=== PATIENT | female | born 1955 | race Caucasian/White ===

== ENCOUNTER 2025-08-20 15:21 | Inpatient (IN) | payer MEDICARE, OTHER ==
[~2025-08-20] VITALS: Ht 154.9 cm; Wt 53.5 kg
[2025-08-20] MEDS ORDERED: ACETAMINOPHEN ES 500 MG TABLET ONE (16:07)
[2025-08-20] MEDS ORDERED: IBUPROFEN 600 MG TABLET ONE (16:07)
[2025-08-20] MEDS: IV NS 0.9% 1,000 ML BAG IV ONE (16:10)
[2025-08-20 16:14] LABS: PLATELET COUNT (AUTO) 295 K/uL (150-450); RED BLOOD CELL COUNT(AUTO) 3.93 MIL/uL (4.0-5.2); RED CELL DISTRIBUTION WIDTH 12.8 % (11.5-15.0); WHITE BLOOD COUNT (AUTO) 17.5 K/uL (4.3-11.0)
[2025-08-20] MEDS: ACETAMINOPHEN ES 500 MG TABLET PO ONE (16:15)
[2025-08-20] MEDS: IBUPROFEN 600 MG TABLET PO ONE (16:15)
[2025-08-20 16:23] LABS: CALCIUM, SERUM 9.0 mg/dL (8.5-10.1); CREATININE 0.9 mg/dL (0.6-1.3); SODIUM SERUM 133.0 mmol/L (136-145); UREA NITROGEN, BLOOD 16.0 mg/dL (7-18)
[2025-08-20] MEDS ORDERED: CT SWABBABLE VALVE TRANS SET 1 EA INFUS.SET MC ONE (16:24)
[2025-08-20] MEDS ORDERED: IOHEXOL-300 100 ML VIAL IV ONE (16:24)
[2025-08-20] MEDS ORDERED: IV NS 0.9% 250 ML IV ONE (16:25)
[2025-08-20 16:29] LABS: ASPARTATE AMINOTRANSFERASE 22.0 U/L (15-37); TOTAL PROTEIN, SERUM 7.2 g/dL (6.4-8.2)
[2025-08-20 16:30] LABS: LACTIC ACID 1.3 mmol/L (0.4-2.0)
[2025-08-20 16:31] LABS: INR 0.99 (0.91-1.10)
[2025-08-20] MEDS: PIPERACILLIN /TAZOBACTAM 3.375 G in IV D5W 50 ML IV ONE (16:35)
[2025-08-20 16:51] LABS: APPEARANCE,URINE CLEAR (CLEAR); BLOOD, URINE NEGATIVE Ery/uL (NEGATIVE); LEUKOCYTE ESTERASE ,URINE NEGATIVE (NEGATIVE); NITRITE, URINE NEGATIVE (NEGATIVE); UGLUCOSE TRACE mg/dL (NEGATIVE)
[2025-08-20 17:01] LABS: ADD URINE CULTURE NO
[2025-08-20] MEDS ORDERED: METO10TA3 PO (19:01)
[2025-08-20] MEDS ORDERED: ONDA4TAB11 PO (19:01)
[2025-08-20] MEDS ORDERED: BUDE10.2 INH (19:01)
[2025-08-20] MEDS ORDERED: FELO10TA44 PO (19:01)
[2025-08-20] MEDS ORDERED: ESCI20TA PO (19:01)
[2025-08-20] MEDS ORDERED: INSU100I40 SQ (19:01)
[2025-08-20] MEDS ORDERED: IBUP-1955 PO (19:01)
[2025-08-20] MEDS ORDERED: MONT10TA22 PO (19:01)
[2025-08-20] MEDS ORDERED: FENO145T21 PO (19:01)
[2025-08-20] MEDS ORDERED: ALBU6.7H9 IH (19:01)
[2025-08-20] MEDS ORDERED: ASPI-1420 PO (19:01)
[2025-08-20] MEDS ORDERED: PANT40TA49 PO (19:01)
[2025-08-20] MEDS ORDERED: LOSA1TAB39 PO (19:01)
[2025-08-20] MEDS ORDERED: METO-357 PO (19:01)
[2025-08-20] MEDS ORDERED: ATOR10TA PO (19:01)
[2025-08-20] MEDS ORDERED: INSU200I4 SQ (19:01)
[2025-08-20] MEDS ORDERED: DEXTROSE 50%-WATER 50 ML DISP.SYRIN IV PRN (20:30)
[2025-08-20] MEDS ORDERED: Z GUARD REMEDY 4 OZ OINT TP PRN (20:30)
[2025-08-20] MEDS: ENOXAPARIN SODIUM 40 MG/0.4 ML DISP.SYRIN SQ SCH (20:30)
[2025-08-20] MEDS ORDERED: MAG HYDROX/AL HYDROX/SIMETH 30 ML UDC PO PRN (20:30)
[2025-08-20] MEDS: POTASSIUM CL. PREMIX PERIPHER. 50 ML IV SCH (21:48)
[2025-08-20] MEDS: IV D5 LR 1,000 ML IV PRN (21:48)
[2025-08-20] MEDS: PANTOPRAZOLE 40 MG VIAL IV SCH (21:49)
[2025-08-20] MEDS ORDERED: PIPERACI/TAZO 3.375GM/D5W 50ML PB IV ONE (22:03)
[2025-08-20] MEDS: PIPERACILLIN /TAZOBACTAM 3.375 G in IV D5W 50 ML IV SCH (22:10)
[2025-08-20 22:59] VITALS: BP 118/77; TEMP 97.7; O2SAT 97
[2025-08-20] MEDS: BLOOD SUGAR DIAGNOSTIC 1 EACH STRIP IN SCH (23:10)
[2025-08-20] MEDS: INSULIN REGULAR, HUMAN 100 UNIT/ML 3 ML VIAL SQ PRN (23:11)
[2025-08-21] VITALS (7 sets, daily range): BP systolic 117–170; BP diastolic 59–84; TEMP 97.3–99.7; O2SAT 96–97
[2025-08-21] MEDS ORDERED: PIPERACI/TAZO 3.375GM/D5W 50ML PB IV ONE (05:12)
[2025-08-21] MEDS: ONDANSETRON HCL/PF 4 MG/2 ML VIAL IVP PRN (05:18)
[2025-08-21 05:53] LABS: PLATELET COUNT (AUTO) 316 K/uL (150-450); RED BLOOD CELL COUNT(AUTO) 4.03 MIL/uL (4.0-5.2); RED CELL DISTRIBUTION WIDTH 12.7 % (11.5-15.0); WHITE BLOOD COUNT (AUTO) 16.9 K/uL (4.3-11.0)
[2025-08-21 06:04] LABS: CALCIUM, SERUM 9.1 mg/dL (8.5-10.1); CREATININE 0.7 mg/dL (0.6-1.3); PHOSPHORUS 2.7 mg/dL (2.5-4.9); SODIUM SERUM 141.0 mmol/L (136-145); UREA NITROGEN, BLOOD 7.0 mg/dL (7-18)
[2025-08-21 06:14] LABS: LDL 58.0 mg/dL (0-99)
[2025-08-21] MEDS: hydrALAZINE HCL IV 20 MG VIAL IV PRN (06:14)
[2025-08-21] MEDS: MORPHINE SULFATE INJ 2 MG/ML DISP.SYRIN IV PRN (06:26)
[2025-08-21] MEDS: POTASSIUM CL. PREMIX PERIPHER. 50 ML IV SCH (10:07)
[2025-08-21] MEDS ORDERED: GADOTERATE MEGLUMINE 10 MMOL/20 ML VIAL IV ONE (13:04)
[2025-08-22 03:52] VITALS: O2SAT 96
[2025-08-22] MEDS: IPRATROPIUM NEB FS 0.5 MG/2.5 ML AMPUL.NEB NEB PRN (03:55)
[2025-08-22] MEDS: ALBUTEROL FS 2.5 MG/3 ML VIAL.NEB NEB PRN (03:55)
[2025-08-22 04:07] VITALS: O2SAT 98
[2025-08-22 07:30] VITALS: BP 164/77; TEMP 98.6; O2SAT 96
[2025-08-22 07:32] LABS: PLATELET COUNT (AUTO) 328 K/uL (150-450); RED BLOOD CELL COUNT(AUTO) 3.74 MIL/uL (4.0-5.2); RED CELL DISTRIBUTION WIDTH 12.6 % (11.5-15.0); WHITE BLOOD COUNT (AUTO) 17.6 K/uL (4.3-11.0)
[2025-08-22 07:44] LABS: CALCIUM, SERUM 9.2 mg/dL (8.5-10.1); CREATININE 0.6 mg/dL (0.6-1.3); SODIUM SERUM 139.0 mmol/L (136-145); UREA NITROGEN, BLOOD 6.0 mg/dL (7-18)
[2025-08-22 07:49] LABS: PHOSPHORUS 2.7 mg/dL (2.5-4.9)
[2025-08-22] MEDS: POTASSIUM CL. PREMIX PERIPHER. 50 ML IV SCH (10:57)
[2025-08-22] MEDS: DILTIAZEM HCL CD 240 MG PO SCH (11:30)
[2025-08-22] MEDS: PIPERACILLIN /TAZOBACTAM 3.375 G in IV D5W 50 ML IV SCH (13:09)
[2025-08-22 13:54] LABS: INR 1.09 (0.91-1.10)
[2025-08-22] MEDS ORDERED: MIDAZOLAM HCL 2 MG/2ML VIAL IV PRN (15:00)
[2025-08-22] MEDS ORDERED: NALOXONE PREFILLED SYRINGE 2 MG/2 ML SYRINGE IV PRN (15:00)
[2025-08-22] MEDS ORDERED: FLUMAZENIL 0.5 MG VIAL IV PRN (15:00)
[2025-08-22] MEDS ORDERED: FENTANYL PF 250MCG/5ML AMPUL IV PRN (15:00)
[2025-08-22] MEDS: ACETAMINOPHEN 325 MG TABLET PO PRN (19:52)
[2025-08-22 20:39] VITALS: BP 129/103; TEMP 100.2; O2SAT 97
[2025-08-22 21:00] VITALS: TEMP 99; O2SAT 98
[2025-08-23] VITALS (12 sets, daily range): BP systolic 158–175; BP diastolic 77–85; TEMP 97.7–98.2; O2SAT 95–100
[2025-08-23] MEDS: DOCUSATE SODIUM 100 MG CAPSULE PO PRN (05:20)
[2025-08-23] MEDS: BUDESONIDE RESPULE INH 0.5 MG/2 ML AMPUL.NEB HHN SCH (07:05)
[2025-08-23 08:23] LABS: HIV-1/2 ANTIBODY NON REACTIVE (NONREACTIVE)
[2025-08-23 11:31] LABS: PLATELET COUNT (AUTO) 321 K/uL (150-450); RED BLOOD CELL COUNT(AUTO) 3.68 MIL/uL (4.0-5.2); RED CELL DISTRIBUTION WIDTH 12.5 % (11.5-15.0); WHITE BLOOD COUNT (AUTO) 14.6 K/uL (4.3-11.0)
[2025-08-23 11:54] LABS: PHOSPHORUS 3.3 mg/dL (2.5-4.9)
[2025-08-23 12:05] LABS: CALCIUM, SERUM 8.6 mg/dL (8.5-10.1); CREATININE 0.7 mg/dL (0.6-1.3); SODIUM SERUM 132.0 mmol/L (136-145); UREA NITROGEN, BLOOD 6.0 mg/dL (7-18)
[2025-08-23] MEDS ORDERED: ALBUTEROL FS 2.5 MG/0.5 ML VIAL.NEB NEB PRN (15:00)
[2025-08-23] MEDS ORDERED: ONDANSETRON 4 MG TAB.RAPDIS PO PRN (15:00)
[2025-08-23] MEDS: INSULIN LISPRO/ASPART 100 UNIT/ML CARTRIDGE SQ SCH (17:55)
[2025-08-23] MEDS ORDERED: IV NS 0.9% 250 ML IV ONE (18:14)
[2025-08-23] MEDS ORDERED: IOHEXOL-300 100 ML VIAL IV ONE (18:14)
[2025-08-23] MEDS: METOPROLOL SUCCINATE 50 MG TAB.SR.24H PO SCH (18:24)
[2025-08-23] MEDS: ALBUTEROL FS 2.5 MG/3 ML VIAL.NEB NEB SCH (19:43)
[2025-08-23] MEDS: ATORVASTATIN 10 MG TABLET PO SCH (21:48)
[2025-08-24] VITALS (13 sets, daily range): BP systolic 133–167; BP diastolic 80–83; TEMP 98.1; O2SAT 94–100
[2025-08-24 00:22] LABS: IRON, SERUM 19 ug/dl (50-175)
[2025-08-24 02:12] LABS: HEPATITIS B CORE AB, TOTAL Negative (Negative)
[2025-08-24] MEDS: IBUPROFEN 600 MG TABLET PO PRN (02:31)
[2025-08-24 06:10] LABS: CANCER AG, 125 39.7 U/mL (0.0-38.1); CARCINOEMBRYONIC ANTIGEN (CEA) 7.5 ng/mL (0.0-4.7)
[2025-08-24 07:39] LABS: PLATELET COUNT (AUTO) 334 K/uL (150-450); RED BLOOD CELL COUNT(AUTO) 3.61 MIL/uL (4.0-5.2); RED CELL DISTRIBUTION WIDTH 12.5 % (11.5-15.0); WHITE BLOOD COUNT (AUTO) 11.8 K/uL (4.3-11.0)
[2025-08-24 07:57] LABS: CALCIUM, SERUM 9.3 mg/dL (8.5-10.1); CREATININE 0.8 mg/dL (0.6-1.3); SODIUM SERUM 140.0 mmol/L (136-145); UREA NITROGEN, BLOOD 6.0 mg/dL (7-18)
[2025-08-24 08:07] LABS: IMMUNOGLOBULIN A, SERUM 229 mg/dL (87-352); IMMUNOGLOBULIN M, SERUM 57 mg/dL (26-217)
[2025-08-24] MEDS: PANTOPRAZOLE 40 MG/PACK PACK PO SCH (08:54)
[2025-08-24] MEDS ORDERED: LOSARTAN/HCTZ 50-12.5MG/ 1 EA TABLET PO SCH (09:00)
[2025-08-24 09:02] LABS: PHOSPHORUS 4.0 mg/dL (2.5-4.9)
[2025-08-24] MEDS: PANTOPRAZOLE 40 MG TABLET.DR PO SCH (09:06)
[2025-08-24 09:09] LABS: FREE KAPPA LT CHAINS SERUM 27.4 mg/L (3.3-19.4); FREE LAMBDA LT CHAIN SERUM 23.6 mg/L (5.7-26.3); KAPPA/LAMBDA RATIO SERUM 1.16 (0.26-1.65)
[2025-08-24] MEDS: METOCLOPRAMIDE HCL 10 MG TABLET PO SCH (09:49)
[2025-08-24] MEDS: ASPIRIN EC 81 MG TABLET.DR PO SCH (09:49)
[2025-08-24] MEDS: FENOFIBRATE NANOCRYS (145 MG) 145 MG TABLET PO SCH (09:49)
[2025-08-24] MEDS: ESCITALOPRAM OXALATE (10 MG) 10 MG TABLET PO SCH (09:49)
[2025-08-24] MEDS: DILTIAZEM HCL CD 240 MG PO SCH (09:50)
[2025-08-24] MEDS: MONTELUKAST SODIUM (10MG) 10 MG TABLET PO SCH (09:50)
[2025-08-24] MEDS: VALSARTAN 80 MG TABLET PO SCH (10:06)
[2025-08-24] MEDS: POTASSIUM CHLORIDE 20 MEQ TAB.PRT.SR PO SCH (10:11)
[2025-08-24 12:07] LABS: FOLIC ACID 10.5 ng/mL (>3.0)
[2025-08-25] VITALS (13 sets, daily range): BP systolic 137–154; BP diastolic 76–85; TEMP 97.5–98.1; O2SAT 95–99
[2025-08-25 07:30] LABS: PLATELET COUNT (AUTO) 365 K/uL (150-450); RED BLOOD CELL COUNT(AUTO) 3.71 MIL/uL (4.0-5.2); RED CELL DISTRIBUTION WIDTH 12.8 % (11.5-15.0); WHITE BLOOD COUNT (AUTO) 11.7 K/uL (4.3-11.0)
[2025-08-25 07:44] LABS: ASPARTATE AMINOTRANSFERASE 16.0 U/L (15-37); CALCIUM, SERUM 8.7 mg/dL (8.5-10.1); CREATININE 0.7 mg/dL (0.6-1.3); PHOSPHORUS 2.6 mg/dL (2.5-4.9); SODIUM SERUM 136.0 mmol/L (136-145); TOTAL PROTEIN, SERUM 6.8 g/dL (6.4-8.2); UREA NITROGEN, BLOOD 7.0 mg/dL (7-18)
[2025-08-25] MEDS: AMLODIPINE BESYLATE 10 MG TABLET PO SCH (08:40)
[2025-08-25] MEDS: POTASSIUM CHLORIDE 20 MEQ TAB.PRT.SR PO ONE (10:01)
[2025-08-25] MEDS: INSULIN GLARGINE, 100 UNIT/ML CARTRIDGE SQ SCH (10:01)
[2025-08-25] MEDS ORDERED: MORPHINE SULFATE INJ 4 MG/ML DISP.SYRIN IV PRN (20:30)
[2025-08-26] VITALS (13 sets, daily range): BP systolic 139–152; BP diastolic 77–95; TEMP 97.3–98.1; O2SAT 95–99
[2025-08-26] MEDS: PIPERACILLIN /TAZOBACTAM 3.375 G in IV D5W 100 ML IV SCH (14:10)
[2025-08-26] MEDS: METOPROLOL SUCCINATE 50 MG TAB.SR.24H PO SCH (17:16)
[2025-08-27] VITALS (9 sets, daily range): BP systolic 148–160; BP diastolic 73–83; TEMP 97.9–98.2; O2SAT 96–99
[2025-08-27 06:43] LABS: PLATELET COUNT (AUTO) 478 K/uL (150-450); RED BLOOD CELL COUNT(AUTO) 4.20 MIL/uL (4.0-5.2); RED CELL DISTRIBUTION WIDTH 12.9 % (11.5-15.0); WHITE BLOOD COUNT (AUTO) 13.2 K/uL (4.3-11.0)
[2025-08-27 07:07] LABS: ASPARTATE AMINOTRANSFERASE 18.0 U/L (15-37); CALCIUM, SERUM 9.3 mg/dL (8.5-10.1); CREATININE 0.7 mg/dL (0.6-1.3); PHOSPHORUS 4.1 mg/dL (2.5-4.9); SODIUM SERUM 135.0 mmol/L (136-145); TOTAL PROTEIN, SERUM 7.5 g/dL (6.4-8.2); UREA NITROGEN, BLOOD 8.0 mg/dL (7-18)
[2025-08-27] MEDS ORDERED: IOHEXOL-350 100 ML VIAL IV ONE (12:31)
[2025-08-28] VITALS (8 sets, daily range): BP systolic 140–144; BP diastolic 79–96; TEMP 97.7; O2SAT 97–99
[2025-08-28 15:10] LABS: *SPE A/G RATIO 0.7 (0.7-1.7); *SPE ALBUMIN 2.6 g/dL (2.9-4.4); *SPE ALPHA-1-GLOBULIN 0.5 g/dL (0.0-0.4); *SPE ALPHA-2-GLOBULIN 1.2 g/dL (0.4-1.0); *SPE BETA GLOBULIN 1.0 g/dL (0.7-1.3); *SPE GLOBULIN, TOTAL 3.5 g/dL (2.2-3.9); *SPE M-SPIKE Not Observed g/dL (Not Observed); *SPE PROTEIN TOTAL 6.1 g/dL (6.0-8.5); *SPEGAMMA GLOBULIN 0.8 g/dL (0.4-1.8)
[2025-08-29] VITALS (9 sets, daily range): BP systolic 108–150; BP diastolic 70–98; TEMP 97.9–98.4; O2SAT 95–99
[2025-08-29 06:49] LABS: INR 1.05 (0.91-1.10)
[2025-08-29 07:01] LABS: PLATELET COUNT (AUTO) 496 K/uL (150-450); RED BLOOD CELL COUNT(AUTO) 4.11 MIL/uL (4.0-5.2); RED CELL DISTRIBUTION WIDTH 12.7 % (11.5-15.0); WHITE BLOOD COUNT (AUTO) 13.4 K/uL (4.3-11.0)
[2025-08-29 07:02] LABS: CALCIUM, SERUM 9.4 mg/dL (8.5-10.1); CREATININE 0.8 mg/dL (0.6-1.3); PHOSPHORUS 3.3 mg/dL (2.5-4.9); SODIUM SERUM 136.0 mmol/L (136-145); UREA NITROGEN, BLOOD 13.0 mg/dL (7-18)
[2025-08-29] MEDS ORDERED: MIDAZOLAM HCL 2 MG/2ML VIAL IV PRN (14:00)
[2025-08-29] MEDS ORDERED: FENTANYL PF 250MCG/5ML AMPUL IV PRN (14:00)
[2025-08-29] MEDS ORDERED: FLUMAZENIL 0.5 MG VIAL IV PRN (14:00)
[2025-08-29] MEDS ORDERED: NALOXONE PREFILLED SYRINGE 2 MG/2 ML SYRINGE IV PRN (14:00)
[2025-08-29] MEDS: FERROUS SULFATE (325 MG) 325 MG/TAB TABLET PO SCH (22:28)
[2025-08-30] VITALS (11 sets, daily range): BP systolic 132–151; BP diastolic 66–94; TEMP 97.3–98.1; O2SAT 96–99
[2025-08-30 07:07] LABS: PLATELET COUNT (AUTO) 460 K/uL (150-450); RED BLOOD CELL COUNT(AUTO) 4.21 MIL/uL (4.0-5.2); RED CELL DISTRIBUTION WIDTH 13.1 % (11.5-15.0); WHITE BLOOD COUNT (AUTO) 11.2 K/uL (4.3-11.0)
[2025-08-30 07:24] LABS: CALCIUM, SERUM 8.9 mg/dL (8.5-10.1); CREATININE 0.8 mg/dL (0.6-1.3); PHOSPHORUS 3.5 mg/dL (2.5-4.9); SODIUM SERUM 136.0 mmol/L (136-145); UREA NITROGEN, BLOOD 13.0 mg/dL (7-18)
[2025-08-30] MEDS: ACIDOPHILUS/BULGARICUS 1 EACH TAB.CHEW PO SCH (08:18)
[2025-08-30] MEDS: AMOX/CLAVULANATE 875 MG TABLET PO SCH (08:18)
[2025-08-30] MEDS ORDERED: PIPERACI/TAZO 3.375GM/D5W 50ML PB IV ONE (22:08)
[2025-08-30] MEDS: PIPERACILLIN /TAZOBACTAM 3.375 G in IV D5W 50 ML IV SCH (22:16)
[2025-08-31] MEDS ORDERED: PIPERACI/TAZO 3.375GM/D5W 50ML PB IV ONE (04:38)
[2025-08-31 06:15] LABS: CALCIUM, SERUM 8.7 mg/dL (8.5-10.1); CREATININE 0.7 mg/dL (0.6-1.3); PHOSPHORUS 3.3 mg/dL (2.5-4.9); SODIUM SERUM 137.0 mmol/L (136-145); UREA NITROGEN, BLOOD 10.0 mg/dL (7-18)
[2025-08-31 06:23] LABS: PLATELET COUNT (AUTO) 459 K/uL (150-450); RED BLOOD CELL COUNT(AUTO) 3.92 MIL/uL (4.0-5.2); RED CELL DISTRIBUTION WIDTH 13.1 % (11.5-15.0); WHITE BLOOD COUNT (AUTO) 9.8 K/uL (4.3-11.0)
[2025-08-31 07:44] VITALS: O2SAT 96
[2025-08-31 07:59] VITALS: O2SAT 99
[2025-08-31 08:40] VITALS: BP 146/82; TEMP 97.5; O2SAT 98
[2025-08-31] MEDS ORDERED: AMOX-430 PO (08:59)
== END 2025-08-31 12:36 | disposition home health service (06) | DRG 872 ==
LOC: ER 15:26 → MED 21:28
PROVIDERS: ADMIT Nurse Practitioner Acute Care; ATTEND Nurse Practitioner Acute Care
PROC: 0W9J30Z Drainage of Pelvic Cavity with Drainage Device, Percutaneous Approach (ICD-10-PCS; principal; 2025-08-22)
DX: A41.9 Sepsis, unspecified organism (principal); K57.20 Diverticulitis of large intestine with perforation and abscess without bleeding; E87.1 Hypo-osmolality and hyponatremia; D50.9 Iron deficiency anemia, unspecified; E11.9 Type 2 diabetes mellitus without complications; D25.9 Leiomyoma of uterus, unspecified; N73.9 Female pelvic inflammatory disease, unspecified; J45.909 Unspecified asthma, uncomplicated; E66.9 Obesity, unspecified; I10 Essential (primary) hypertension; E87.6 Hypokalemia; K21.9 Gastro-esophageal reflux disease without esophagitis; D75.839 Thrombocytosis, unspecified; E78.5 Hyperlipidemia, unspecified; Z79.4 Long term (current) use of insulin; K59.00 Constipation, unspecified; F12.90 Cannabis use, unspecified, uncomplicated; Z68.22 Body mass index [BMI] 22.0-22.9, adult; N84.0 Polyp of corpus uteri; R97.0 Elevated carcinoembryonic antigen [CEA]; Z79.899 Other long term (current) drug therapy; R19.09 Other intra-abdominal and pelvic swelling, mass and lump
CPT/HCPCS: 36415; 71045-TC; 71260-TC; 72197-TC; 75989-TC; 80048-TC; 80053-TC; 80061-TC; 80076-TC; 81001; 82378; 82607-TC; 82728-TC; 82784; 82962-TC; 83540-TC; 83605-TC; 83615-TC; 83735-TC; 84100-TC; 84155; 84165; 84443-TC; 85025-TC; 85610-TC; 85730-TC; 86304; 86317; 86334; 86704; 86803; 87040-TC; 87070-TC; 87075-TC; 87086-TC; 87205-TC; 87340; 87806; 93307-TC; 94760-TC; 94761-TC; 94762-TC; 94799-TC; 97112-TC; 97116-TC; 97530-TC; 97535-TC; A4223; A9575; G0378; J0360; J1650; J1815; J2250; J2270; J2405; J2470; J2543; J3010; J3480; J3490; J7030; J7040; J7050; J7060; J8597; Q9967